=== PATIENT | female | born 1990 | race Caucasian/White ===

== ENCOUNTER 2019-05-17 08:21 | Inpatient (IN) ==
--- NOTE | 2019-05-17 08:50 | EKG Report ---
Test Performed on : 05/17/2019 08:39:20 AM Test Reason : SOB Blood Pressure : / mmHG Vent. Rate : 123 BPM Atrial Rate : 123 BPM P-R Int : 140 ms QRS Dur : 084 ms QT Int : 316 ms P-R-T Axes : 025 056 021 degrees QTc Int : 452 ms Sinus tachycardia. Otherwise normal ECG When compared with ECG of 14-AUG-2018 23:14, Vent. rate has increased BY 57 BPM Unconfirmed Result
--- NOTE | 2019-05-17 08:56 | PROVIDER DOCUMENTATION ---
HPI-General Adult - General Chief Complaint: SEPSIS ALERT - D Stated Complaint: SOB Time Seen by Provider: 05/17/19 08:53 Source: patient Allergies/Adverse Reactions: Patient Allergies Allergy/AdvReac Type Severity Reaction Status Date / Time Sulfa (Sulfonamide Allergy RASH Verified 05/17/19 09:35 Antibiotics) hydrocodone AdvReac NAUSEA/VOMI Verified 05/17/19 09:35 TING Home Medications: Home Medication List Medication Instructions Recorded Confirmed Last Taken Type Oseltamivir [Tamiflu] 75 mg PO BID 5 Days #10 cap 05/17/19 Unknown Rx - History of Present Illness -Gen Adult Nature of Presenting Problems: 28yo female presents with CC of shortness of breath and cough. The patient reports that starting yesterday she noted progressive cough and wheezing as well as sweats and chills. The patient denies fevers. The patient does not have a hx of asthma. No recent travel or surgery, no hx of blood clots, no hemoptysis. The patient is currently in no distress. Location of Pain/Injury: reports: chest (with coughing) Severity: reports: mild Onset/Duration: reports: other (yesterday) Timing: reports: still present Context/Activities at Onset: reports: none Associated Symptoms: reports: cough, fever/chills, loss of appetite, shortness of breath Review of Systems - Adult - REVIEW OF SYSTEMS - ADULT Constitutional: reports: chills. denies: fever Eyes: reports: no symptoms reported. denies: eye pain Ears, Nose, Mouth & Throat: reports: no symptoms reported. denies: throat pain Cardiovascular: reports: no symptoms reported, chest pain (with coughing) Respiratory: reports: cough, shortness of breath. denies: hemoptysis Gastrointestinal: reports: nausea. denies: abdominal pain, diarrhea, vomiting Genitourinary: reports: no symptoms reported. denies: flank pain Musculoskeletal: reports: no symptoms reported. denies: back pain Integumentary: reports: no symptoms reported Neurological: reports: headache/migraines Psychiatric: reports: no symptoms reported. denies: alcohol/drug dependence Endocrine: reports: no symptoms reported Hematologic/Lymphatic: reports: no symptoms reported, other (no bleeding) Allergic/Immunologic: reports: no symptoms reported, other (no swelling) Past History - Adult - PAST MEDICAL HISTORY-ADULT Review of Records: reports: Old Records Reviewed Major Childhood Illnesses: reports: denies history Cardiovascular: reports: denies history Respiratory: reports: denies history Gastrointestinal: reports: GERD Obstetrical/Gynecological: reports: denies history Genitourinary: reports: denies history Musculoskeletal: reports: denies history Neurological: reports: denies history Endocrine/Immune: reports: denies history Other Conditions: reports: denies history - PRIOR SURGERIES/PROCEDURES Surgical/Procedure History: reports: tonsillectomy - IMMUNIZATION STATUS Childhood Immunizations: UTD Flu Vaccine: See Nurse Assessment - FAMILY HISTORY Family History: reviewed, not pertinent Physical Exam-General - PHYSICAL EXAM-ADULT Exam Limited by: Obesity Initial Vital Signs Reviewed: Yes - CONSTITUTIONAL General Appearance: alert, no apparent distress, lethargic - EYES Eyes: negative: conjuctival exudate, sclera injected, scleral icterus - HEAD, EARS, NOSE, MOUTH & THROAT HENMT: normocephalic/atraumatic, pharynx normal. negative: moist mucous membranes (dry), hearing deficit, pharyngeal erythema - NECK Neck: non-tender. negative: lymphadenopathy - RESPIRATORY Respiratory: no respiratory distress, decreased breath sounds, rales (mild) - CARDIOVASCULAR Cardiovascular: no edema, tachycardia - GASTROINTESTINAL (ABDOMEN) Abdominal Exam: non tender, soft - MUSCULOSKELETAL Back Exam: normal inspection Extremity: non-tender. negative: swelling - SKIN Integumentary: normal color, warm/dry - NEUROLOGIC Neurologic: grossly normal - PSYCHIATRIC Psych/Mental Status: normal mood/affect, normal thought content, normal thought process Progress - PLAN OF CARE/RESULTS Progress/Plan/Lab Results: Vital Signs - 8 hr 05/17/19 08:33 Temperature 100.4 F H Pulse Rate 123 H Respiratory Rate 24 Blood Pressure 127/78 O2 Sat by Pulse Oximetry 92 L Orders Category Date Time Status Cardiac Monitoring DIRECTED Care 05/17/19 08:41 Active IV Insertion ORDERED Care 05/17/19 08:41 Active Notify MD of + Sepsis Screen NOW Care 05/17/19 08:41 Active Notify Physician As Ordered Care 05/17/19 08:41 Active CHEST-1 VIEW [RAD] Stat Exams 05/17/19 08:41 Taken BLOOD CULTURE [BLDCUL] Stat Lab 05/17/19 08:41 Uncollected CBC WITH DIFF [HEME] Stat Lab 05/17/19 08:41 Uncollected CK PROFILE [SP CHEM] Stat Lab 05/17/19 08:41 Uncollected COMPREHENSIVE METABOLIC PANEL [CHEM] Stat Lab 05/17/19 08:41 Uncollected LACTATE, PLASMA [CHEM] Q3H Lab 05/17/19 08:45 Uncollected LACTATE, PLASMA [CHEM] Q3H Lab 05/17/19 11:45 Uncollected LACTATE, PLASMA [CHEM] Q3H Lab 05/17/19 14:45 Uncollected PROTIME WITH INR [COAG] Stat Lab 05/17/19 08:41 Uncollected PTT [COAG] Stat Lab 05/17/19 08:41 Uncollected TROPONIN T Stat Lab 05/17/19 08:41 Uncollected URINALYSIS W/POSS RFLX CULT [URINALYSIS] Stat Lab 05/17/19 08:41 Uncollected Oxygen Device Stat Oth 05/17/19 08:41 Active EKG [EKG] Stat Ther 05/17/19 08:42 Draft Result Diagrams: 05/17/19 09:28 05/17/19 09:28 - REASSESSMENT Reassessment #1 Status: other (Patient still tachycardic at 117 will add a second bolus.) Reassessment #2 Status: other (Given persistent tachycardia as well as hypoxia will plan to admit for observation. Discussed the case with the hospitalist team who will admit the patient.) - EKG 1 Time of EKG reading by physician:: 08:39 EKG Read and Signed by:: Elie Lugo (Entered/Cosigned Dr. Sykes) Rate: 123 Rhythm: sinus [place]: normal QRS: normal NC Interval: normal ST Wave: normal Prior EKG Comparison: changes noted Comments: new tachycardia, no injury current or arrythmia noted - XRAY 1 XRAY Study: Chest Impression: See EMR Report (EXAM: CHEST-1 VIEW HISTORY: SOB TECHNIQUE: Single view COMPARISON: 04/28/2019 FINDINGS: Poor inspiratory effort. The heart is not enlarged. The vessels are not distended. There are no infiltrates. No effusion identified. IMPRESSION: Negative exam. Electronically signed by Noam Fragoso 05/17/2019 8:57 AM 05/17/19856 Interpreting Physician: Noam Fragoso MD Dictated Date/Time: 05/17/19856 cc: Elie Lugo MD; None,PCP) Departure - Departure Date of Disposition Decision: 05/17/19 Time of Disposition Decision: 15:25 DIAGNOSIS: Influenza Disposition: ADMITTED INPATIENT 09 Certified Medical Emergency: Emergent Condition: Good Additional Instructions: Please follow up with your primary doctor in the next 2-3 days Please return to the ED for any new or worsening symptoms. ED Follow Up Instructions: You have been treated by a care provider in the Emergency Department. These instructions are being provided to you so you can have an understanding of how to care for yourself upon discharge. Upon discharge from the Emergency Department, you are responsible for making arrangements for follow-up care by a physician of your choice. Take all prescribed medications as directed. Return to the Emergency Department immediately for any new or worsening symptoms. You may call the Physician Referral phone number at [phone] to obtain a list of Physicians who are taking new patients. Prescriptions: Oseltamivir [Tamiflu] 75 mg PO BID 5 Days #10 cap Referrals and Follow-Ups: None,PCP [Primary Care Provider] - Discharge Education: Influenza, Adult, [id number] - Critical Care Note This patient required my direct & personal management of CC.: No Attestation - Physician/ JANEY Attestation Patient care was provided by Advanced Practice Provider:: No The physician spent face to face time with patient:: Yes Advanced Practice Provider documentation review:: Supervising physician onsite and consulted in the evaluation and care of this patient. The physician did have a face to face encounter with the patient.
--- NOTE | 2019-05-17 09:00 | Diag Imaging Result Doc PS360 ---
EXAM: CHEST-1 VIEW HISTORY: SOB TECHNIQUE: Single view COMPARISON: 04/28/2019 FINDINGS: Poor inspiratory effort. The heart is not enlarged. The vessels are not distended. There are no infiltrates. No effusion identified. IMPRESSION: Negative exam. Electronically signed by Noam Fragoso 05/17/2019 8:57 AM
[2019-05-17] MEDS ORDERED: NS 1,000 ML IV ONE ×2 (09:06→12:18)
[2019-05-17 09:44] LABS: BASO# 0.03 X1000 (0.0-0.2); BASO% 0.5 % (0.0-0.8); EOS# 0.01 X1000 (0.0-0.7); EOS% 0.2 % (0.0-10.0); HEMATOCRIT 37.2 % (37.0-47.0); HEMOGLOBIN 11.7 g/dL (12.0-16.0); LYMPH# 0.72 X1000 (1.2-3.4); LYMPH% 11.9 % (20.5-51.1); MCH 26.2 PG (27-31); MCHC 31.5 g/dL (33-37); MCV 83.2 FL (81-99); MONO# 0.77 X1000 (0.11-0.59); MONO% 12.7 % (1.7-9.3); MPV 9.4 FL (7.4-10.4); NEUT# 4.54 X1000 (1.4-6.5); NEUT% 74.7 % (42.2-75.2); PLT 280 X1000 (130-400); RBC 4.47 XMIL (4.2-5.4); RDW 14.3 % (11.5-14.5); WBC 6.07 X1000 (4.8-10.8)
[2019-05-17 09:59] LABS: INR 1.04; PROTIME 13.7 Seconds (11.0-16.0)
[2019-05-17 10:00] LABS: PTT 30.7 Seconds (22.3-41.8)
[2019-05-17 10:17] LABS: AGAP 18; ALB/GLOB RATIO 1.5; ALBUMIN 4.4 g/dL (3.5-5.0); ALKALINE PHOSPHATASE 47 U/L (32-104); BUN 6 mg/dL (8-22); CALCIUM 9.3 mg/dL (8.8-10.2); CHLORIDE 96 mmol/L (98-107); CK PROFILE 29 U/L (24-173); COSMO 274; CREATININE 0.6 mg/dL (0.5-0.9); ESTIMATED GFR > 60; GLUCOSE 111 mg/dL (70-104); GOT 23 U/L (10-30); GPT 22 U/L (10-36); POTASSIUM 3.9 mmol/L (3.5-5.1); SODIUM 138 mmol/L (136-145); TCO2 24 mmol/L (25-35); TOTAL PROTEIN 7.3 g/dL (6.3-8.3)
[2019-05-17 11:57] LABS: URINE SOURCE CLEAN CATCH
[2019-05-17 12:01] LABS: BILIRUBIN URINE NEGATIVE (NEGATIVE); BLOOD URINE SMALL (NEGATIVE); COLOR YELLOW; GLUCOSE URINE NEGATIVE (NEGATIVE); KETONE URINE NEGATIVE (NEGATIVE); LEUKOCYTES URINE NEGATIVE (NEGATIVE); NITRITE URINE NEGATIVE (NEGATIVE); PROTEIN URINE NEGATIVE (NEGATIVE); SP GRAVITY URINE 1.017; TURBIDITY URINE CLEAR (CLEAR); UROBILINOGEN URINE NORMAL (NORMAL)
[2019-05-17 12:02] LABS: UR EPITHELIAL CELLS <10 /HPF (<10); URINE BACTERIA 1+ /HPF; URINE RBC <10 /HPF (<10); URINE WBC <10 /HPF (<10)
[2019-05-17] MEDS ORDERED: TAMIFLU PO ONE (14:03)
[2019-05-17] MEDS ORDERED: TYLENOL PO ONE (14:14)
[2019-05-17] MEDS ORDERED: TYLENOL PO PRN (17:30)
[2019-05-17] MEDS ORDERED: ZOFRAN IV PRN (17:30)
--- NOTE | 2019-05-17 17:49 | HISTORY AND PHYSICAL ---
HISTORY OF PRESENT ILLNESS: Brooke Silva is a 28-year-old and she felt bad yesterday morning, admitted on 05/17/2019. On 05/16/2019 she woke with a cough, general malaise, feeling bad, had subjective fever and just felt a little short of breath. Came into the emergency room. Nasal swabs were positive for influenza. PAST MEDICAL HISTORY: Really no significant medical problems. ALLERGIES: She is allergic to hydrocodone, I think sulfa drugs. SOCIAL HISTORY: She has 2 cats and a dog, but has not had any problem with those before. FAMILY HISTORY: No significant family history. SOCIAL HISTORY: Her dad lives with her. He does work with wood work, but I do not think she is exposed to a lot of the wood dust. REVIEW OF SYSTEMS: General: Subjective fever. General malaise, myalgias. HEENT: No change in visual or hearing acuity. Respiratory: Increased cough, dry cough, increased dyspnea. No orthopnea, paroxysmal nocturnal dyspnea reported. Cardiovascular: No chest pain or tachy palpitation. Musculoskeletal/Neurologic: No focal complaints Endocrinologic/hemologic: No significant history. Gastrointestinal: No nausea or vomiting or change in bowels. Genitourinary: No gross hematuria or dysuria. PHYSICAL EXAMINATION: VITAL SIGNS: Temperature 100.9 degrees, pulse 98, respirations 20, blood pressure 144/82. Pupils are equal and round. LUNGS: Clear in all lung galeano. CARDIOVASCULAR: Regular rhythm and rate without murmur or S3. ABDOMEN: Soft, nondistended, nontender. No pedal edema. No cervical adenopathy. NECK: Supple. SKIN: No skin rashes. Oral nasal mucosa without lesions. LABORATORY DATA: White count 6070. Hematocrit is 37, platelet count 280,000. Sodium 138, potassium 3.9, chloride 96, BUN 6, creatinine 0.6. AST 23, ALT is 20, alkaline phosphatase 47, albumin is 4.4. Pro time 13.7. Urinalysis unremarkable. Her chest x-ray was negative. Poor inspiratory effort. Heart was not enlarged. Vessels not distended. There is no infiltrates, no effusion. Her nasal swabs were positive for influenza A. Negative for influenza B. ASSESSMENT/PLAN: Influenza with fever and general malaise. I do not see any secondary pneumonia. We will put her on Tamiflu 75 mg twice a day. We will give her normal saline and run it at 85 mL an hour. Give her an antiemetic if she needs it. Let her use Tylenol. She can have 2 Tylenol q.4 hours p.r.n. aches and body aches and general pain and she can also have Motrin 400 mg p.o. q.4 hours p.r.n. body aches and pain and fever. We will put her on a regular diet and note that her lab is pretty unremarkable. Renal output is good. Her test was negative. cc: Merrill Lama MD
[2019-05-17] MEDS: NS 1,000 ML IV SCH (18:33)
[2019-05-17] MEDS: DUONEB (A & A) INH SCH ×2 (19:55→23:10)
[2019-05-17] MEDS: MOTRIN PO SCH (20:10)
[2019-05-17] MEDS: TAMIFLU PO SCH (20:10)
[2019-05-18] MEDS: MOTRIN PO SCH ×4 (02:06→21:01)
[2019-05-18] MEDS: DUONEB (A & A) INH SCH ×6 (03:46→22:56)
[2019-05-18 08:13] LABS: BASO# 0.01 X1000 (0.0-0.2); BASO% 0.4 % (0.0-0.8); HEMATOCRIT 32.4 % (37.0-47.0); HEMOGLOBIN 9.8 g/dL (12.0-16.0); LYMPH# 0.55 X1000 (1.2-3.4); LYMPH% 22.7 % (20.5-51.1); MCH 25.9 PG (27-31); MCHC 30.2 g/dL (33-37); MCV 85.7 FL (81-99); MONO% 16.5 % (1.7-9.3); MPV 9.6 FL (7.4-10.4); NEUT# 1.46 X1000 (1.4-6.5); NEUT% 60.4 % (42.2-75.2); PLT 214 X1000 (130-400); RBC 3.78 XMIL (4.2-5.4); RDW 14.6 % (11.5-14.5); WBC 2.42 X1000 (4.8-10.8)
[2019-05-18 09:03] LABS: AGAP 14; BUN 9 mg/dL (8-22); CALCIUM 8.2 mg/dL (8.8-10.2); CHLORIDE 102 mmol/L (98-107); COSMO 278; CREATININE 0.6 mg/dL (0.5-0.9); ESTIMATED GFR > 60; GLUCOSE 103 mg/dL (70-104); POTASSIUM 3.5 mmol/L (3.5-5.1); SODIUM 140 mmol/L (136-145); TCO2 24 mmol/L (25-35)
[2019-05-18] MEDS: NS 1,000 ML IV SCH ×2 (09:05→22:42)
[2019-05-18] MEDS: TAMIFLU PO SCH ×2 (09:05→21:01)
[2019-05-18] MEDS ORDERED: ZITHROMAX PO SCH (09:45)
--- NOTE | 2019-05-18 10:01 | PROGRESS NOTE ---
DATE: 05/18/2019 SUBJECTIVE: She is feeling a little better today. Still coughing and mainly shortness of breath is related to her coughing. OBJECTIVE: She remains afebrile. Pulse 87, respirations 22, blood pressure 130/64. Pupils are equal and round. Lungs are clear in all lung galeano. Cardiovascular Examination: Regular rhythm and rate without murmur or S3. Abdomen is soft. Skin is warm and dry. ASSESSMENT AND PLAN: Influenza. Nasal swabs were positive for influenza A. Continue her Tamiflu. I am going to go ahead and put her on azithromycin as well, just this the anti- inflammatory properties. Continue present intravenous fluids, and her Tylenol and Motrin as needed. She appears to be feeling a little bit better. Hopefully can go home tomorrow. cc: Merrill Lama MD
[2019-05-18] MEDS ORDERED: ZITHROMAX LIQUID PO SCH (11:00)
[2019-05-19] MEDS: MOTRIN PO SCH ×4 (02:50→20:14)
[2019-05-19] MEDS: DUONEB (A & A) INH SCH ×6 (03:21→23:40)
--- NOTE | 2019-05-19 09:16 | PROGRESS NOTE ---
DATE: 05/19/2019 SUBJECTIVE: Ms. Silva still feels pretty rough. She says she feels better than yesterday. Her breathing is pretty comfortable, still a lot of secretions and postnasal drainage and dry cough. OBJECTIVE: Vital Signs: She has remained afebrile, temperature 98.4 degrees, pulse 80, respirations 20, blood pressure 100/ 50. HEENT: Pupils are equal and round. Lungs: Clear in all lung galeano. Cardiovascular: Regular rhythm and rate without murmur or S3. Abdomen: Soft. Skin: Warm and dry. ASSESSMENT AND PLAN: Influenza A, upper respiratory congestion, and general malaise. She looks like she is feeling a little better. We are treating her with Tamiflu, also given some azithromycin, more for anti-inflammatory properties. It looks like she will probably benefit from another 24 hours. cc: Merrill Lama MD MTDMirlande
[2019-05-19] MEDS: TAMIFLU PO SCH ×2 (09:22→20:14)
[2019-05-19] MEDS: ZITHROMAX PO SCH (09:22)
[2019-05-19] MEDS: NS 1,000 ML IV SCH (13:45)
[2019-05-20] MEDS: DUONEB (A & A) INH SCH ×2 (03:24→08:49)
[2019-05-20 08:03] VITALS: BP 152/83
[2019-05-20] MEDS: TAMIFLU PO SCH (08:58)
[2019-05-20] MEDS: MOTRIN PO SCH ×2 (08:58→11:48)
[2019-05-20] MEDS: ZITHROMAX PO SCH (08:58)
--- NOTE | 2019-05-20 10:22 | DISCHARGE SUMMARY ---
ADMISSION DATE: 05/17/2019 DISCHARGE DATE: 05/20/2019 HOSPITAL COURSE: This is a 28-year-old who felt very bad the morning before admission with cough, general malaise, myalgia, and she felt short of breath and dry cough. Chest x-ray and cultures and blood work were pretty unremarkable, but she was positive on nasopharyngeal swab for influenza A. She was given some IV fluids and admitted to the hospital. She stayed about 48 hours. She was much better on the morning of 05/20/2019. Kidney function look good. We will give her a prescription for Tamiflu and let her go home. Note that her serum test was negative. cc: Merrill Lama MD
[2019-05-20] MEDS: NS 1,000 ML IV SCH (11:49)
== END 2019-05-20 12:22 | disposition home or self-care (01) | DRG 195 ==
LOC: ED 08:21 → EDIPHOLD 17:28 → 3N 20:20
PROVIDERS: ATTEND Emergency Medicine